=== PATIENT | female | born 1980 | race Caucasian/White ===

== ENCOUNTER 2016-11-01 10:16 | Emergency (ER) | payer BC, OTHER ==
[2016-11-01] MEDS ORDERED: ACETAMINOPHEN 325 MG TABLET PO ONE (10:44)
[2016-11-01] MEDS ORDERED: LIDOCAINE 1% INJ (10 MG/ML) 10 ML MDV INJ ONE (10:48)
--- NOTE | 2016-11-01 11:02 | ER Document Report ---
ED Fall - General Chief Complaint: Fall Injury Stated Complaint: FALL/LEFT KNEE PAIN/RIGHT HAND PAIN Time Seen by Provider: 11/01/16 10:48 Notes: The patient is a 36-year-old female, 7 months , presents after she tripped and fell on her left knee and right hand. She is having a right pinky pain and deformity. She denies abdominal pain, vaginal bleeding, contractions, chest pain, shortness of breath, neck pain, numbness or tingling. Her tetanus is up-to-date. - Related data Allergies/Adverse Reactions: Penicillins Allergy (Verified 11/01/16 10:58) Home Medications: Current Home Medications Pnv No.122/Iron/Folic Acid [ Multi Tablet] 1 each PO DAILY 11/01/16 [ History] Past Medical History - General Information source: Patient - Social History Smoking Status: Never Smoker Frequency of alcohol use: None Drug Abuse: None Family History: Reviewed & Not Pertinent Renal/ Medical History: Denies: Hx Peritoneal Dialysis Surgical Hx: Negative Review of Systems - Review of Systems Notes: REVIEW OF SYSTEMS: CONSTITUTIONAL: -fevers, -chills EENT: -eye pain, -difficulty swallowing, -nasal congestion CARDIOVASCULAR:-chest pain, -syncope. RESPIRATORY: -cough, -SOB GASTROINTESTINAL: -abdominal pain, - nausea, -vomiting, -diarrhea GENITOURINARY: -dysuria, -hematuria MUSCULOSKELETAL: +right pinky pain, +left knee pain, -back pain, -neck pain SKIN: +abrasions HEMATOLOGIC: -easy bruising or bleeding. LYMPHATIC: -swollen, enlarged glands. NEUROLOGICAL: -altered mental status or loss of consciousness, -headache, - neurologic symptoms PSYCHIATRIC: -anxiety, -depression. ALL OTHER SYSTEMS REVIEWED AND NEGATIVE. Physical Exam - Vital signs Vitals: Temp Pulse BP Pulse Ox 97.7 F 94 127/80 H 100 11/01/16 10:25 11/01/16 10:25 11/01/16 10:25 11/01/16 10:25 - Notes Notes: PHYSICAL EXAMINATION: GENERAL: Tearful. HEAD: Atraumatic, normocephalic. EYES: Pupils equal round and reactive to light, extraocular movements intact, sclera anicteric, conjunctiva are normal. ENT: nares patent, oropharynx clear without exudates. Moist mucous membranes. NECK: Normal range of motion, supple without lymphadenopathy LUNGS: Breath sounds clear to auscultation bilaterally and equal. No wheezes rales or rhonchi. HEART: Regular rate and rhythm without murmurs ABDOMEN: Soft, nontender, normoactive bowel sounds. No guarding, no rebound. No masses appreciated. EXTREMITIES: Right pinky with abrasions at base and medial deformity. Unable to extend pinky. Left knee with superficial abrasions, but no tenderness. NEUROLOGICAL: Cranial nerves grossly intact. Normal speech, normal gait. Normal sensory and motor exams. PSYCH: Normal mood, normal affect. SKIN: Superficial abrasions over left knee and base of right pinky. Course - Re-evaluation Re-evalutation: Patient has evidence of 5th proximal phalanx fracture. Patient placed in splint and will have her follow-up with hand surgery. Abrasions on left knee dressed with bacitracin. Bedside ultrasound shows a single intrauterine fetus consistent with dates with a heart rate of 150 and active movement. - Vital Signs Vital signs: Temp Pulse Resp BP Pulse Ox 97.7 F 94 127/80 H 100 11/01/16 10:25 11/01/16 10:25 11/01/16 10:25 11/01/16 10:25 - Diagnostic Test Radiology reviewed: Image reviewed, Reports reviewed Radiology results interpreted by me: Right hand x-ray: 5th proximal phalanx fracture without displacement Left knee x-ray: NAD Procedures - Immobilization Left Hand Time completed: 12:23 Pre-Proc Neuro Vasc Exam: Normal Immobilizer type: Volar splint Performed by: PCT Post-Proc Neuro Vasc Exam: Normal Alignment checked and good: Yes Discharge - Discharge Clinical Impression: Fracture phalanges, hand Qualifiers: Encounter type: initial encounter Fracture type: closed Qualified Code(s): S62.609A - Fracture of unspecified phalanx of unspecified finger, initial encounter for closed fracture Knee contusion Qualifiers: Encounter type: initial encounter Laterality: left Qualified Code(s): S80.02XA - Contusion of left knee, initial encounter Condition: Stable Disposition: HOME, SELF-CARE Additional Instructions: Fractured Finger There is a fracture in your finger. The bone is straight and in good position to heal. The doctor has assessed the seriousness of the fracture and has explained your treatment plan. Usually the finger will be splinted until fracture healing is complete. This is usually about three or four weeks. At that time, the injured finger may be taped to the next finger to provide a moving splint for longer protection. The first few days after the injury, the finger should be kept elevated and cold (with ice packs). This decreases the swelling and pain. You should contact the doctor or return at once if pain or swelling become severe, or if the finger becomes numb. Some degree of bruising is normal with a finger fracture. Abrasions An abrasion is a scraping injury of the skin. Some scarring may result. The seriousness of an abrasion is not always obvious at first. Hidden tissue damage may be present and infection may occur despite proper care. Complete healing may take from ten days to as long as a month. The healing time depends on the depth of the abrasion, and on the amount of crushing of underlying tissues from the injury. Keep the wound and dressing clean. Do not shower or bathe the area until okayed by the doctor. If the dressing gets wet, remove it and blot the wound dry, then reapply a clean dressing. Dressings should be changed every day. Sunscreen should be used for six months after the skin is healed. If any signs of infection occur (swelling, redness, increasing tenderness, red streaks, profuse purulent drainage from the abrasion, tender lumps in the armpit or groin above the abrasion, or fever), see the doctor immediately. Referrals: MARTÍN HAMMOND DO [ACTIVE STAFF] - Follow up as needed
--- NOTE | 2016-11-01 11:39 | RADIOLOGY REPORT (SQ) ---
EXAM DESCRIPTION: KNEE LEFT 4 VIEW COMPLETED DATE/TIME: 11/01/2016 11:31 am REASON FOR STUDY: left knee pain COMPARISON: None. NUMBER OF VIEWS: Four views. TECHNIQUE: AP, lateral, and both oblique radiographic images acquired of the left knee. LIMITATIONS: None. FINDINGS: MINERALIZATION: Normal. BONES: No acute fracture or dislocation. No worrisome bone lesions. No significant osteophytes. JOINT: No effusion. No chondrocalcinosis. OTHER: No other significant finding. IMPRESSION: NEGATIVE STUDY OF THE LEFT KNEE. NO EXPLANATION FOR PAIN. TECHNICAL DOCUMENTATION: JOB ID: [id number] [employer]- All Rights Reserved
--- NOTE | 2016-11-01 11:41 | RADIOLOGY REPORT (SQ) ---
EXAM DESCRIPTION: HAND RIGHT 3 VIEWS COMPLETED DATE/TIME: 11/01/2016 11:31 am REASON FOR STUDY: right hand injury COMPARISON: None. EXAM PARAMETERS: NUMBER OF VIEWS: Three views. TECHNIQUE: AP, lateral and oblique radiographic images acquired of the right hand. LIMITATIONS: None. FINDINGS: MINERALIZATION: Normal. BONES: There is a fracture of the base of the 5th proximal phalanx with no significant displacement o f minimal angulation. JOINTS: No effusions. SOFT TISSUES: No soft tissue swelling. No foreign body. OTHER: No other significant finding. IMPRESSION: Fractures the base of the 5th proximal phalanx. The fracture does not appear to involve the articular surface. TECHNICAL DOCUMENTATION: JOB ID: [id number] [employer]- All Rights Reserved
[2016-11-01 12:29] VITALS: BP 106/81
== END 2016-11-01 12:27 | disposition home or self-care (01) ==
LOC: ER 10:16
PROC: 2W3FX1Z Immobilization of Left Hand using Splint (ICD-10-PCS; principal; 2016-11-01)
DX: O9A.213 Injury, poisoning and certain other consequences of external causes complicating pregnancy, third trimester (principal); S62.609A Fracture of unspecified phalanx of unspecified finger, initial encounter for closed fracture; S80.02XA Contusion of left knee, initial encounter; W01.0XXA Fall on same level from slipping, tripping and stumbling without subsequent striking against object, initial encounter; Z88.0 Allergy status to penicillin
CPT/HCPCS: 99283